=== PATIENT | female | born 1945 | race Caucasian/White ===

== ENCOUNTER 2017-12-22 09:55 | Emergency (ER) | END 2017-12-22 11:50 | disposition home or self-care (01) ==

== ENCOUNTER 2018-08-11 10:33 | Emergency (ER) | payer OTHER ==
[~2018-08-11] VITALS: Ht 152.4 cm; Wt 65.5 kg
[~2018-08-11 10:33] MED LIST: DICL100G37 TOP; NAPR-985 PO; TYL500 PO
[2018-08-11 10:37] VITALS: Ht 152.4 cm; Wt 65.5 kg
[2018-08-11] MEDS ORDERED: IBUPROFEN 600 MG TAB PO ONE (11:30)
--- NOTE | 2018-08-11 11:35 | ERD ---
ER Documentation Chief Complaint Chief Complaint bilat knee pain x 2 years HPI 73-year-old woman complains of bilateral knee pain for over 5 years, she also complains of left popliteal fossa pain. It seems she has no insight into her prior diagnosis despite evaluation here for similar symptoms, and after years of the same pain. States pain in her knees is worse with ambulation and walking upstairs. She denies recent calf or leg swelling, no redness to the legs, no fevers or chills, no chest pain or shortness of breath ROS All systems reviewed and are negative except as per history of present illness. Medications Home Meds Active Scripts Diclofenac Sodium* (Voltaren* Gel) 1% -100 Gm Gel, 2 GM TOP QID, #1 TUB Prov:ANCA ZEE PA-C 12/22/17 Naproxen* (Naprosyn*) 500 Mg Tablet, 500 MG PO BID PRN for PAIN AND/OR INFLAMMATION, #30 TAB Prov:ANCA ZEE PA-C 12/22/17 Acetaminophen* (Tylenol*) 500 Mg Tab, 1000 MG PO Q8H PRN for PAIN AND OR ELEVATED TEMP for 30 Days, TAB Prov:KENZIE MAGANA 02/29/16 Discontinued Scripts Naproxen* (Naprosyn*) 500 Mg Tablet, 500 MG PO BID, #30 TAB Prov:JEANETTE BORJA 11/02/15 Allergies Allergies: Coded Allergies: No Known Allergy (Unverified , 08/11/18) PMhx/Soc Long history of bilateral knee osteoarthritis, left popliteal cyst, hypertension History of Surgery: No Anesthesia Reaction: No Hx Neurological Disorder: No Hx Respiratory Disorders: No Hx Cardiac Disorders: No Hx Psychiatric Problems: No Hx Miscellaneous Medical Probl: No Hx Alcohol Use: No Hx Substance Use: No Hx Tobacco Use: No FmHx Family History: No diabetes Physical Exam Vitals Vital Signs Date Temp Pulse Resp B/P (MAP) Pulse Ox O2 O2 Flow FiO2 Time Delivery Rate 08/11/18 97.3 68 18 216/96 98 10:37 (136) Physical Exam Const: No acute distress, afebrile Head: Atraumatic Eyes: Normal Conjunctiva ENT: Normal External Ears, Nose and Mouth. Neck: Full range of motion. No meningismus. Resp: Clear to auscultation bilaterally Cardio: Regular rate and rhythm, no murmurs Skin: No petechiae or rashes Back: No midline or flank tenderness Ext: No cyanosis, or edema. Calves are bilaterally symmetrical, she has crepitus to the knees bilaterally with flexion and extension and she has a soft cystic mass palpated in the left popliteal fossa consistent with her history Neur: Awake and alert x3, no focal deficits or facial asymmetry, pupils equal round reactive to light Results 24 hrs Current Medications Medications Dose Sig/Nita Start Time Status Last (Trade) Ordered Route PRN Stop Time Admin Dose Reason Admin Ibuprofen 600 mg ONCE ONCE 08/11/18 (Motrin) PO 11:30 08/11/18 11:31 Procedures/MDM I administered ibuprofen 600 mg p.o. for her symptoms. I reviewed her past medical history she does have prior imaging to the knees as well as the left popliteal fossa revealing a Bentley's cyst. I recommended follow-up with her PMD and orthopedic surgeon she may be a ca ndidate for operative intervention, although this will be deferred to outpatient management. Patient feels much better at this time, and vital signs are normal, symptoms have improved. I did give strict instructions to return to the ED if symptoms continue or worsen, patient will otherwise follow-up with primary care physician. Patient understood instructions and agreed to plan. Disclaimer: Inadvertent spelling and grammatical errors are likely due to EHR/dictation software use and do not reflect on the overall quality of patient care. Also, please note that the electronic time recorded on this note does not necessarily reflect the actual time of the patient encounter. Departure Diagnosis: Primary Impression: Bakers cyst Laterality: left Qualified Codes: M71.22 - Synovial cyst of popliteal space [Bentley], left knee Additional Impression: Osteoarthritis of knee Osteoarthritis type: primary Laterality: bilateral Qualified Codes: M17.0 - Bilateral primary osteoarthritis of knee Condition: Good Patient Instructions: Bentley's Cyst, Hypertension, Established, Osteoarthritis Referrals: [facility] (PCP) SHAILA AGUILAR MD Aug 11, 2018 11:35
[2018-08-11] MEDS ORDERED: IBUP-1542 PO (11:36)
[2018-08-11 11:51] VITALS: BP 180/79; PULSE 80; RESP 20
== END 2018-08-11 11:52 | disposition home or self-care (01) ==
LOC: E/R 10:33
DX: M71.22 Synovial cyst of popliteal space [Baker], left knee (principal); M17.0 Bilateral primary osteoarthritis of knee; I10 Essential (primary) hypertension
CPT/HCPCS: 99282